=== PATIENT | female | born 1980 ===

== ENCOUNTER 2018-09-19 13:14 | Outpatient (CLI) | payer MEDICAID | END 2018-09-19 13:15 | disposition home or self-care (01) | LOC: C.PAT 13:14 | DX: N92.0 Excessive and frequent menstruation with regular cycle (principal) ==

== ENCOUNTER 2018-09-23 09:06 | Day surgery (SDC) | payer MEDICAID ==
[2018-09-19 13:33] VITALS: BMI 30.9
[2018-09-23] MEDS ORDERED: HYDROmorphone 0.5 mg/0.5 ml ISec IVP PRN (09:16)
[2018-09-23 09:36] VITALS: O2SAT 100
[2018-09-23] MEDS ORDERED: Propofol 10 mg/ml Inj (20 ML) ONE (10:26)
[2018-09-23] MEDS ORDERED: Midazolam 2 MG/2 ML VIAL ONE (10:26)
--- NOTE | 2018-09-23 10:58 | PCM.SURG1 ---
Surgeon's Initial Post Op Note - Surgeon's Notes Surgeon: Dr. Maldonado Abrasive Mixer Helper: None Type of Anesthesia: General LMA Anesthesia Administered By: Dr Pang Pre-Operative Diagnosis: 38 yo with menorrhagia, endometrial polyp, multiple fibroid , Failure of medical therapy Operative Findings: Av uterus with multiple Intramural fibroid , 15 wks gestation and endometrial polyp Post-Operative Diagnosis: Same as above Operation Performed: Hysteropscopy D and C, attemped myosure Specimen/Specimens Removed: Polyp, emc, Ecc Estimated Blood Loss: EBL {In ML}: 10 Blood Products Given: N/A Drains Used: No Drains Post-Op Condition: Good Date of Surgery/Procedure: 09/23/18 Time of Surgery/Procedure: 10:58
[2018-09-23 13:04] VITALS: BP 114/70; PULSE 70; RESP 18; TEMP 98
--- NOTE | 2018-09-23 20:41 | OP ---
PROCEDURE DATE: 09/23/2018 PREOPERATIVE DIAGNOSIS: A 38-year-old female with history of menorrhagia, endometrial polyp, multiple leiomyomas and failure of medical therapy. POSTOPERATIVE DIAGNOSIS: A 38-year-old female with history of menorrhagia, endometrial polyp, multiple leiomyomas and failure of medical therapy. PROCEDURES: Hysteroscopy, D and C, attempted MyoSure. SURGEON: Negar Maldonado MD ANESTHESIA ADMINISTERED BY: Rachele Pang MD TYPE OF ANESTHESIA: General LMA. FINDINGS: Anteverted uterus of approximately 15 weeks' gestation, noted to have multiple leiomyomas as well as an endometrial polyp. COMPLICATIONS: None. ESTIMATED BLOOD LOSS: Approximately 10 mL. IV FLUIDS: 300 mL. INPUT AND OUTPUT: 100 mL. SPECIMEN: EMC, a polyp as well as endometrial curetting. DESCRIPTION OF PROCEDURE: The patient was informed of the risk factors, benefits, and alternatives of the procedure. Risk factors included infection, bleeding, damage to the surrounding organs and tissues, complication from anesthesia and possible . After informed consent was obtained, she was then taken to the operating room, prepped and draped in normal sterile fashion and placed in a dorsal lithotomy position. In that particular time, a weighted speculum was inserted into the vagina. The anterior lip of the cervix was dilated. It was noted that she had a large cavity which is approximately 15 weeks with multiple leiomyoma. In that particular instance, surveillance of the endometrial polyp was performed. The MyoSure was attempted but unsuccessful. So, a fractional D and C and a polypectomy was then performed. The polyp removed and was submitted to pathology and endometrial curetting was then performed as well as submitted and endocervical absent hemostasis. The scope was re-introduced, making sure there was no area of perforation. Upon completion, all instruments were removed from the vagina. Instrument and lap counts were correct x2. The patient was then taken to the recovery room in stable condition and instructed to follow up in the office in 2 weeks. Negar Maldonado MD
--- NOTE | 2018-09-24 12:42 | CARD ---
APPROVED REPORT Date of service: 09/23/2018 EKG Measurement Heart [id number] <Conclusion> Normal sinus rhythm Normal ECG
== END 2018-09-23 13:14 | disposition home or self-care (01) ==
LOC: EDBD → C.SDS 09:06
PROVIDERS: ATTEND Obstetrics & Gynecology
DX: N84.0 Polyp of corpus uteri (principal); D25.9 Leiomyoma of uterus, unspecified; N92.1 Excessive and frequent menstruation with irregular cycle
CPT/HCPCS: 58558; 88305; 93005; J1885; J2001; J2250; J2704; J2765; J3010